=== PATIENT | female | born 1975 | race Caucasian/White ===

== ENCOUNTER 2017-11-15 09:03 | Outpatient (REF) | payer SELFPAY ==
[2017-11-15 14:32] LABS: Cholesterol 166 mg/dL (50-200); Glucose 85 mg/dL (70-100); HDL Cholesterol 52 mg/dL (40-60); LDL CHOLESTEROL 102 mg/dL (<100); TSH (W/Ref FT4) 2.23 uIU/mL (0.358-3.74); Triglyceride 60 mg/dL (30-150)
== END 2017-11-15 09:23 ==
LOC: NCHCN 09:03
PROVIDERS: PCP Nurse Practitioner Family; Visit Provider Nurse Practitioner
DX: Z00.00 Encounter for general adult medical examination without abnormal findings (principal); Z13.1 Encounter for screening for diabetes mellitus; Z13.29 Encounter for screening for other suspected endocrine disorder; Z13.220 Encounter for screening for lipoid disorders
CPT/HCPCS: 80061; 82947; 83721; 84443

== ENCOUNTER 2017-11-28 15:51 | Outpatient (REF) | payer SELFPAY ==
[2017-11-28 19:23] LABS: Bilirubin Negative (Negative); Blood Small (Negative); Clarity Sl Cloudy; Glucose Negative (Negative); Ketones Negative (Negative); Leukocyte Esterase Large (Negative); Nitrite Negative (Negative)
[2017-11-28 20:13] LABS: Bacteria Many HPF (Negative); C & S Indicated? Yes; Casts Negative LPF (Negative); Crystals Negative HPF (Negative); Epithelial Cells Moderate HPF (Negative); Mucus Negative (Negative); Other Cells Negative (Negative); RBC Negative (0-2); WBC >50 HPF (0-5)
== END 2017-11-28 16:11 ==
LOC: NCHCN 15:51
PROVIDERS: PCP Nurse Practitioner Family; Visit Provider Nurse Practitioner
DX: R35.0 Frequency of micturition (principal)
CPT/HCPCS: 87077; 81003; 81015; 87086; 87186

== ENCOUNTER 2018-01-12 20:12 | Outpatient (REF) | payer BC, SELFPAY | END 2018-01-12 20:32 | LOC: NCHCN 20:12 | PROVIDERS: PCP Nurse Practitioner Family; Visit Provider Nurse Practitioner | DX: N39.0 Urinary tract infection, site not specified (principal) | CPT/HCPCS: 87077; 87086; 87186 ==

== ENCOUNTER 2021-01-01 16:32 | Outpatient (REF) | payer SELFPAY ==
--- NOTE | 2021-01-01 08:30 | PAPFT_PTH ---
PATIENT: Guerita Bardales LOC: [facility]#:[id number] AGE/SX: 45/F ROOM: RE01/01/[address]: Yun Jorge : 1975 BED: DIS: 01/01/2021 SPEC #: [id number] RECD: 01/01/21 16:45 STATUS: STEFANY REQ #: [id number] JACK: 01/01/21 08:[address]: Yun Jorge DEPT: [facility] Cytology RECD BY: Steffany Moser ENTERED: 01/01/21 16:45 SP TYPE: PAPFT OTHR DR: Kelly Luciano Tissues: 1 - CX/ENDOCX FOR PAP SMEARS Procedures: PAP THIN PREP/UVM Screening HPV DNA PROBE Comments:
== END 2021-01-01 16:33 | disposition home or self-care (01) ==
LOC: NCHCN 16:32
PROVIDERS: PCP Nurse Practitioner Family; Visit Provider Nurse Practitioner
DX: Z12.4 Encounter for screening for malignant neoplasm of cervix (principal); Z11.51 Encounter for screening for human papillomavirus (HPV)
CPT/HCPCS: 88142; 87624

== ENCOUNTER 2022-03-19 17:23 | Emergency (ER) | payer SELFPAY ==
[2022-03-19 17:27] VITALS: BP 127/69; PULSE 75; RESP 16; TEMP 36.5; O2SAT 100
--- NOTE | 2022-03-19 17:34 | ED.GENADUL_ITS ---
Discharge Plan Disposition Patient Disposition: Home Condition: Good Discharge Details Clinical Impression: Cough present for greater than 3 weeks Primary Care Provider: Yun Jorge ED Provider: Gerber Barker [place] Meds and New Rx's Prescriptions: New azithromycin 250 mg tablet 250 mg PO DAILY 4 Days Qty: 4 0RF Rx Instructions: start on day 2 of therapy benzonatate 100 mg capsule 100 mg PO TID PRNQty: 20 0RF Discharge Instructions Instructions: Acute Bronchitis (ED) Additional Instructions: You were seen in the ED for cough for the last 6 weeks. Your chest x-ray is normal. Your chest pain is likely related to your cough and is reproducible with palpation along the sternum. You may take acetaminophen or ibuprofen for this discomfort. We will start you on antibiotic to cover for atypical infections. We will also provide you with benzonatate to help with your cough. Please follow-up with primary care next week for recheck. You should return to the ED for any new or worsening pain, shortness of breath, mental status changes, other concerns. Medical Decision Making Patient presenting with persistent cough over 6 weeks and chest pain with cough or deep breath. She does not have shortness of breath. She has never had fever. Her lungs are clear. Chest pain is reproducible with palpation along both sternal borders. Saturations are normal. Pulses normal. Will obtain chest x-ray but her chest pain is likely related to cough and chest wall pain. She perks out for PE. She does not need EKG and laboratory studies at this point. Chest x-ray without acute cardiopulmonary disease per my read. Given the duration of the patient's cough will cover for atypicals with a macrolide. Will prescribe Tessalon for her cough. Follow-up with primary care next week for recheck. Return precautions discussed. HPI General Mode of arrival: ambulatory . Date/Time Provider Initiated Documentation: 03/19/22 17:34 . Limitations to Documentation: no limitations . Information obtained by: patient . HPI Narrative: Patient presents to ED with complaint of cough for the last 6 weeks. It is dry and nonproductive. It is not worse but it is not improved since she came down with a little bit of a cold 6 weeks ago. At no time as she had fever. She does not have shortness of breath. She does have chest pain with cough and deep breathing along both sides of her sternum. She denies any back pain. She has bilateral ear fullness but no pain. She has no congestion, sore throat, headache. Has no prior history of asthma. She is not a smoker. She is able to continue her daily routine but has episodes of coughing fits where she cannot catch her breath and his family come in to be evaluated. Related Data Home Medications Medication Instructions Recorded Confirmed azithromycin 250 mg tablet 250 mg PO DAILY 4 days #4 tabs 03/19/22 benzonatate 100 mg capsule 100 mg PO TID PRN #20 caps 03/19/22 Previous Rx's Medication Instructions Recorded azithromycin 250 mg tablet 250 mg PO DAILY 4 days #4 tabs 03/19/22 benzonatate 100 mg capsule 100 mg PO TID PRN #20 caps 03/19/22 Allergies Allergy/AdvReac Type Severity Reaction Status Date / Time amoxicillin Allergy Mild SKIN RASH Unverified 05/15/14 06:35 General Stated Complaint: RespSymp NERISSA: 3 Review of Systems Narrative: As per HPI PFSH All Active Problems (Updated 03/19/22 @ 18:07 by Gerber Barker MD) Cough present for greater than 3 weeks (Acute) Medical History No significant past medical history Surgical History S/P tubal ligation Social History Smoking/Tobacco Use Status: Never Smoking risk assessment performed?: Yes Drug use: Never Do you feel safe at home: Yes Do you feel safe in your relationship?: Yes Exam Narrative Exam Narrative: Const: WDWN female in NAD. HEENT: NC/AT. Normal facial exam. TMs clear bilaterally. Eyes: Normal conjunctiva and sclera. Neck: Supple. Trachea midline. Lungs: Normal respiratory effort. Lungs are clear. Tender along both sternal boarders. Cor: RRR without murmur/gallop. Good radial pulses. GI: Soft. NT/ND. No guarding or rebound. Neuro: A+O x 3. Normal speech, mentation, gait. Cranial nerves II - XII grossly intact. No gross motor or sensory deficit. Ext: No C/C/E. Skin: Warm and dry without rash. Course Vital Signs Vital signs: Vital Signs Temperature 97.7 F 03/19/22 17:27 Pulse 75 03/19/22 17:27 Respiratory Rate 16 03/19/22 17:27 Blood Pressure 127/69 03/19/22 17:27 Pulse Oximetry 100 03/19/22 17:27 Temperature 97.7 F 03/19/22 17:27 Temperature Source Temporal Artery Scan 03/19/22 17:27 Pulse 75 03/19/22 17:27 Respiratory Rate 16 03/19/22 17:27 Blood Pressure 127/69 03/19/22 17:27 Blood Pressure Position Sitting 03/19/22 17:27 Pulse Oximetry 100 03/19/22 17:27 Oxygen Delivery Method Room Air 03/19/22 17:27 Oxygen Flow Rate 0 03/19/22 17:27 Pain Level 5 03/19/22 17:27
[2022-03-19 17:39] VITALS: O2SAT 98
--- NOTE | 2022-03-19 17:45 | DI.RAD_ITS ---
Exam(s) XR CHEST 2V PA LATERAL EXAM: XR CHEST 2V PA LATERAL CLINICAL HISTORY: persistent pain. TECHNIQUE: 2D digital imaging was performed. COMPARISON: CR CHEST 2 VIEWS PA,LAT from 07/31/2008 FINDINGS: 2 views: Heart size is normal. The mediastinum is not widened. Lungs are clear. No infiltrates nor pleural effusions. IMPRESSION: No acute pulmonary findings. DATA REPOSITORY: RADIATION DOSE DELIVERED:
[2022-03-19 17:46] VITALS: BP 116/81; PULSE 67
--- NOTE | 2022-03-19 18:14 | DI.VRAD_ITS ---
PROCEDURE INFORMATION: Exam: XR Chest Exam date and time: 03/19/2022 5:59 PM Age: 46 years old Clinical indication: Other: Persistant pain TECHNIQUE: Imaging protocol: Radiologic exam of the chest. Views: 2 views. Total images: 2 COMPARISON: No relevant prior studies available. FINDINGS: Lungs: Unremarkable. No consolidation. Pleural spaces: Unremarkable. No pleural effusion. No pneumothorax. Heart/Mediastinum: Unremarkable. No cardiomegaly. Bones/joints: Unremarkable. IMPRESSION: No acute findings. Dictated and Authenticated by: Michael Almanzar MD. Ordering:ORALIA Mayes MD
[2022-03-19] MEDS: Benzonatate 100 MG CAP PO (18:23)
[2022-03-19] MEDS: Azithromycin 250 MG TAB 500 MG PO (18:23)
== END 2022-03-19 18:25 | disposition home or self-care (01) ==
PROVIDERS: Emergency Provider Emergency Medicine; PCP Nurse Practitioner
DX: R05.9 Cough, unspecified (principal); R07.89 Other chest pain
CPT/HCPCS: 99283; 71046; 99284

== ENCOUNTER 2023-03-30 04:27 | Outpatient (CLI) | payer OTHER, SELFPAY ==
[2023-03-30 17:51] LABS: HBs Antibody, Quant <3.1 mIU/mL (See Note); Hepatitis B Surface Ab Negative (See Note)
[2023-03-31 10:30] LABS: Varicella IgG Antibody Positive (See Note)
[2023-03-31 10:37] LABS: Measles IgG Antibody Positive (See Note); Mumps Antibody IgG Positive (See Note)
[2023-03-31 10:42] LABS: Rubella IgG Ab (UVM) Positive (See Note)
[2023-04-01 12:07] LABS: TB Interpretation Negative (Negative)
== END 2023-03-30 04:28 | disposition home or self-care (01) ==
LOC: LBO 04:27
PROVIDERS: PCP Nurse Practitioner Family; Visit Provider Nurse Practitioner Family
DX: Z02.1 Encounter for pre-employment examination (principal); Z11.1 Encounter for screening for respiratory tuberculosis; Z11.59 Encounter for screening for other viral diseases; Z01.84 Encounter for antibody response examination
CPT/HCPCS: 36415; 86706; 86787; 86480; 86735; 86762; 86765

== ENCOUNTER 2023-07-26 08:08 | Emergency (ER) | payer OTHER, SELFPAY ==
[2023-07-26 08:10] VITALS: BP 124/73; PULSE 76; RESP 16; TEMP 37.7; O2SAT 99
[2023-07-26] MEDS: Loratidine 10 MG TAB PO (08:59)
[2023-07-26] MEDS: diphenhydrAMINE 25 MG CAP PO (08:59)
[2023-07-26] MEDS: Ketorolac 10 MG TAB PO (09:00)
[2023-07-26] MEDS: Prochlorperazine 5 MG TAB PO (09:00)
[2023-07-26 09:03] VITALS: BP 124/73; PULSE 76; RESP 16; TEMP 37.7; O2SAT 99
--- NOTE | 2023-07-26 10:23 | ED.GENADUL_ITS ---
Discharge Plan Disposition Patient Disposition: Home Discharge Details Clinical Impression: Facial swelling, Periorbital swelling, Sunburn, Head ache Primary Care Provider: STEVIE CONTI ED Provider: Rusty Carrillo Home Meds and New Rx's Prescriptions: No Action montelukast [Singulair] PO cetirizine 10 mg tablet 10 mg PO DAILY PRN fluticasone propionate [Allergy Relief (fluticasone)] 50 mcg/actuation spray,suspension 2 spray intranasal DAILY Rx Instructions: administer into each nostril benzonatate 100 mg capsule 100 mg PO TID PRNQty: 20 0RF Discharge Instructions Instructions: General Headache (ED) Additional Instructions: * Continue Claritin and Benadryl to help with facial swelling. Ice pack will also help with the swelling * Take Motrin and Tylenol to help with the headache * Increase water intake, aggressively drink water until your sunburn resolves * Return to the emergency department with any eye pain, vision change or concerns for infection like we discussed. Discharge Data Discharge Date/Time-TO BE ENTERED AT DEPARTURE: 07/26/23 09:03 HPI General Date/Time Provider Initiated Documentation: 07/26/23 08:23 . Limitations to Documentation: no limitations . Information obtained by: patient . HPI Narrative: 47-year-old female without significant past medical history presents for evaluation of facial swelling. She reports that 2 days ago she developed significant sunburn after being outside all day. She then reports that yesterday she woke up and had some facial swelling, particularly around the right eye. This was associated with headache. She has taken some Tylenol w ithout significant improvement. She denies any pain with eye movement, blurry vision or change in vision. She denies any significant history of headaches. No vomiting. She reports that she has significant sunburn on arms and legs as well. Related Data Home Medications Medication Instructions Recorded Confirmed benzonatate 100 mg capsule 100 mg PO TID PRN #20 caps 03/19/22 cetirizine 10 mg tablet 10 mg PO DAILY PRN 09/28/22 09/28/22 fluticasone propionate 50 2 spray intranasal DAILY 09/28/22 09/28/22 mcg/actuation nasal spray,suspension (Allergy Relief (fluticasone)) montelukast [Singulair] PO 09/28/22 09/28/22 Previous Rx's Medication Instructions Recorded benzonatate 100 mg capsule 100 mg PO TID PRN #20 caps 03/19/22 Allergies Allergy/AdvReac Type Severity Reaction Status Date / Time amoxicillin Allergy Mild SKIN RASH Unverified 09/28/22 10:06 General Stated Complaint: EyeProblem NERISSA: 4 Exam Narrative Exam Narrative: Review of Systems: All systems reviewed & are unremarkable except as noted in HPI and below Well-developed, no acute distress NCAT PERRL, normal conjunctiva Visual acuity normal, no pain with eye movements, extraocular movements intact There is some mild periorbital edema, particularly of the upper lid. There is no tenderness or crepitus or obvious wounds RRR Unlabored respiratory effort Nondistended abdomen Extremities w/o deformity, no cyanosis, no edema Face is significantly red from burn, first-degree sunburn also noted on lower legs, with prominent redness no focal neurologic deficits Appropriate mood and affect Course Vital Signs Vital signs: Vital Signs Temperature 37.7 C H 07/26/23 08:10 Pulse 76 07/26/23 08:10 Respiratory Rate 16 07/26/23 08:10 Blood Pressure 124/73 07/26/23 08:10 Pulse Oximetry 99 07/26/23 08:10 Temperature 37.7 C H 07/26/23 09:03 Temperature Source Tympanic 07/26/23 09:03 Pulse 76 07/26/23 09:03 Respiratory Rate 16 07/26/23 09:03 Respiratory Effort Normal 07/26/23 08:23 Blood Pressure 124/73 07/26/23 09:03 Blood Pressure Position Sitting 07/26/23 09:03 Pulse Oximetry 99 07/26/23 09:03 Oxygen Delivery Method Room Air 07/26/23 09:03 Oxygen Flow Rate 0 07/26/23 09:03 Pain Level 5 07/26/23 09:03 Comment No APAP or ibuprofen today 07/26/23 09:03 Medical Decision Making Emergent evaluation of facial swelling. Initial differential includes sunburn, allergic reaction, no evidence of cellulitis, wound or other trauma. Patient has sustained fairly significant sunburn to her face and I suspect that the swelling is secondary to the inflammation from the burn and has settled with gravity. There is no ocular involvement and she has no actual eye complaint. I do not suspect facial cellulitis or other infectious etiology as a source of the facial swelling. I did advise some antihistamines and anti-inflammatory to help with the symptoms. I suspect her headache is secondary to dehydration with worsened by the sunburn. There are no meningeal signs or signs of trauma. Her headache is mild at this time and she does not require any intracranial imaging. Offered IV fluids and IV medications, but the patient has requested oral treatment. Advised aggressive oral hydration at home. Return precautions advised. Recommend sunscreen and follow-up with PCP. Quality:SDOH Health Related Social Needs: No Data to Display PFSH All Active Problems Head ache (Acute) Sunburn (Acute) Periorbital swelling (Acute) Facial swelling (Acute) Sensation of fullness in both ears (Acute) Sinus pressure (Acute) Medical History No significant past medical history Surgical History S/P tubal ligation Social History Smoking/Tobacco Use Status: Never Smoking risk assessment performed?: Yes Drug use: Never Substance use type: does not use Do you feel safe at home: Yes Do you feel safe in your relationship?: Yes
== END 2023-07-26 09:03 | disposition home or self-care (01) ==
PROVIDERS: Emergency Provider Emergency Medicine; PCP Nurse Practitioner Family
DX: R22.0 Localized swelling, mass and lump, head (principal); R51.9 Headache, unspecified; R42 Dizziness and giddiness; H05.221 Edema of right orbit; L55.9 Sunburn, unspecified
CPT/HCPCS: 99283

== ENCOUNTER 2023-08-03 18:09 | Outpatient (REF) | payer OTHER, SELFPAY ==
[2023-08-03 19:49] LABS: Anion Gap 11.4 mmol/L (3-11); BUN 13 mg/dL (7-18); CO2 26.6 mmol/L (21.0-32.0); CREATININE 0.9 mg/dL (0.55-1.02); Calcium 9.5 mg/dL (8.5-10.1); Calculated LDL 103 mg/dL (<100); Chloride 103 mmol/L (98-107); Cholesterol 177 mg/dL (<200); Estimated GFR 79.35 (mL/min/1.73m2); Glucose 89 mg/dL (74-106); HDL Cholesterol 63 mg/dL (40-60); Potassium 3.8 mmol/L (3.5-5.1); Sodium 141 mmol/L (136-145); Triglyceride 55 mg/dL (<150)
== END 2023-08-03 18:10 | disposition home or self-care (01) ==
LOC: NCHCN 18:09
PROVIDERS: PCP Nurse Practitioner Family; Visit Provider Nurse Practitioner Family
DX: Z00.00 Encounter for general adult medical examination without abnormal findings (principal)
CPT/HCPCS: 80048; 80061

== ENCOUNTER → 2023-09-08 00:43 | Outpatient (CLI) | payer OTHER, SELFPAY ==
--- NOTE | 2023-09-08 | DI.MAMMO_ITS ---
Exam(s) MAMMO SCREENING EXAM: MAMMO SCREENING CLINICAL HISTORY: Screening, Z12.39 TECHNIQUE: Mammograms were interpreted according to the usual protocol including computer analysis w [employer] CAD system, tomosynthesis and C-view imaging. COMPARISON: None. Baseline examination. FINDINGS: The breasts are composed of heterogeneously dense fibroglandular densities, Breast Density category C . No suspicious masses or suspicious microcalcifications are seen. No skin thickening or abnormal axillary lymph nodes are seen. IMPRESSION: BI-RADS Category 1, Negative mammogram. Yearly screening mammography is recommended. Breast Density Category C, heterogeneously Dense. The mammogram demonstrates the patient's breast tissue is dense. Dense breast tissue is very common a nd is not abnormal but dense breast tissue can make it harder to find cancer on a mammogram. Also, de nse breast tissue may increase breast cancer risk. This information about the result of the mammogram report was provided to the patient to raise their awareness. Use this report when you speak with the patient about their risks for breast cancer, which includes their family history. At that time, you may recommend additional screening tests (Ultrasound or MRI) as they might be useful based on their r isk. A negative radiographic report should not delay biopsy if a dominant or clinically suspicious mass is present. Up to ten percent of cancers are not identified on mammography. A negative report may reinforce clinical impression. Adenosis and dense breasts may obscure an underlying neoplasm. False positive reports average 6 to 10%.
== END ==
PROVIDERS: PCP Nurse Practitioner Family; Visit Provider Nurse Practitioner Family
DX: Z12.39 Encounter for other screening for malignant neoplasm of breast (principal); Z12.31 Encounter for screening mammogram for malignant neoplasm of breast; R92.333 Mammographic heterogeneous density, bilateral breasts
CPT/HCPCS: 77063; 77067

== ENCOUNTER 2024-01-09 09:03 | Day surgery (SDC) | payer OTHER, SELFPAY ==
--- NOTE | 2024-01-08 08:11 | W.PM.DSUDISC ---
Date of service: 01/09/24 Time of Service: 10:11 Discharge Plan Disposition Patient Disposition: Home Condition: Good Discharge Details Reason For Visit: screening colonoscopy Attending Provider: Tyron Perez Primary Care Provider: STEVIE CONTI Home Meds and New Rx's Prescriptions: Continued No Known Home Meds Discharge Instructions Additional Instructions: Guerita was great seeing you today, and I hope you are comfortable during the procedure. Your colonoscopy was totally normal. With a negative screening colonoscopy today, you will be good for 10 years. If you have any questions at all, please do not hesitate to reach out to your primary care physician further recommendations. 1. If tolerated, consume a soft, low fiber diet for 1-2 days. 2[address] Do not drive, drink alcohol, operate machinery, make critical decisions, or do activities that require coordination or balance for 24 hours. 3. Because air was put into your colon during the procedure, expelling air from your rectum (passing gas or farting) is normal. 4. You may not have a bowel movement for 1-3 days because of the colonoscopy prep. This is normal. 5. Go directly to the emergency room if you notice any of the following: Develop chills (warm to touch), or if you have a thermometer and your temperature is above 101 Difficulty breathing or difficultly swallowing Persistent vomiting Severe abdominal pain, other than gas cramps Severe chest pain Black, tarry stools Any bleeding ? exceeding one tablespoon 6. Call your physician if the site where your intravenous was started becomes red, swollen, painful, and warm to touch. 7. Your physician has reviewed your pre-procedure medications. Please continue to take those medications as previously ordered. You will be given specific information/education regarding any changes to your medications before leaving. Activity:: Activity as Tolerated Diet:: As Tolerated Discharge Orders Discharge Orders: Discharge Order (Routine); Ordered 01/08/24 Ordered By: Tyron Perez DS: Diagnosis Discharge Diagnosis (1) Encounter for screening colonoscopy: Status: Acute Asessment and Plan: Negative screening colonoscopy; follow-up in 10 years
--- NOTE | 2024-01-08 08:12 | W.COLOREPORT ---
Date of service: 01/09/24 Time of Service: 10:11 Colonoscopy Report Date of procedure: 01/09/24 Pre-op diagnosis general: screening colonoscopy Post-op diagnosis procedure note: other (Negative screening colonoscopy) Procedure: colonoscopy Surgeon: Tyron Perez Anesthesia Type: General LMA/ETT Estimated blood loss (mL): 0 Pathology: none sent Complications: None Disposition: same day Indications: Guerita is a 48 year old woman who needs a screening colonoscopy Prep: Miralax/Dulcolax Procedure Start Time: 09:51 Procedure End Time: 09:57 Retraction Time: 7 Findings: Negative screening colonoscopy Procedure Description: After the induction of anesthesia, and with the patient in left lateral decubitus position, I began by performing an external anorectal exam.? Perineum and skin were normal, as was the anal verge.? There was no evidence of external hemorrhoids.? Next, I performed a digital rectal exam.? I did not appreciate any abnormal findings.? Next, I advanced a colonoscope into the rectal vault.? I performed retroflexion.? This appeared normal.? Using insufflation, I then advanced the colonoscope beyond the rectal folds and into the sigmoid colon before advancing towards the cecum.? The quality of the prep was outstanding.? The scope was noted to be in the cecum by identification of the ileocecal valve and appendiceal orifice.? I then began withdrawing the colonoscope using repeated irrigation as necessary for full evaluation of the colonic mucosa. ?Once the scope was withdrawn to the level of the rectum, great care was taken to examine portions of the rectal folds.? I saw no signs of tumors, polyps, or any other abnormalities. Finally, the scope was withdrawn and the patient was brought to the same-day surgery recovery unit as the anesthetic wore off. ?The findings and instructions were shared with the patient prior to discharge. [place] Bowel Prep [place] Bowel Prep Right Colon: 3 Left Colon: 3 Transverse Colon: 3 Total Score: 9
--- NOTE | 2024-01-09 06:36 | W.ANESPRE ---
General Info Date of Service Date Performed: 01/09/24 Height: 5 ft 7 in Weight: 66.905 kg Body Mass Index (BMI): 23.1 Surgical Procedure: Operation Date: 01/09/24 10:20 Proposed Procedure Side Surgeon p Colonoscopy Tyron Perez MD Meds Allergies and Home Medications Allergies Allergy/AdvReac Type Severity Reaction Status Date / Time amoxicillin Allergy Mild SKIN RASH Verified 01/09/24 09:30 Home Medication ?Medication ?Instructions ?Recorded Unknown [No Known Home Meds] 01/06/24 Current Visit Medications: Current Medications Generic Name Dose Route Start Last Admin Trade Name Freq PRN Reason Stop Dose Admin IV Miscellaneous Supplies 1 each 01/09/24 06:00 Iv Access IV 02/05/24 23:59 DIRECTED MO Ondansetron HCl 4 mg 01/08/24 08:13 Ondansetron 4 Mg/2 Ml Vial IVP 02/07/24 08:12 Q4H PRN PRN Nausea / Vomiting Sodium Chloride 0 ml 01/09/24 06:00 Normal Saline Flush 10 Ml Syr IV 02/05/24 23:59 PRN PRN Sodium Chloride 0 ml 01/09/24 06:00 Normal Saline 10 Ml Vial IJ 02/05/24 23:59 DIRECTED PRN Sterile Water 0 ml 01/09/24 06:00 Water,Injection,Sterile 10 Ml Vial IJ 02/05/24 23:59 DIRECTED PRN PFSH Active Problems Active Problems: Problem Status Onset Code Encounter for screening colonoscopy Acute Z12.11 Sensation of fullness in both ears Acute H93.8X3 Sinus pressure Acute J34.89 Medical History Medical History Pain in thoracic spine Inflammation of sacroiliac joint UTI (urinary tract infection) Disorder of nasal sinus Chronic sinusitis Dysplastic nevus of skin No significant past medical history Medical History Comments:: Per pt. states her sister did, I'm not sure but I think her heart stopped beating Surgical History Surgical History S/P tubal ligation Tobacco Smoking/Tobacco Use Status: Never Alcohol Alcohol Intake: current Alcohol intake frequency: a few times a week Substance Use Substance use: Never Substance use type: does not use Vital Signs and Lab Results Vital Signs Most Recent Vital Signs in EMR: Temp Pulse Resp BP Pulse Ox 36.2 C L 71 18 114/64 99 01/09/24 09:20 01/09/24 09:20 01/09/24 09:20 01/09/24 09:20 01/09/24 09:20 Lab Results Blood Type / Crossmatch: No Data to Display Complete Blood Count: No Data to Display Complete Metabolic Panel: No Data to Display Liver Function Panel: No Data to Display Coagulation Panel: No Data to Display Cardiac Panel: No Data to Display Arterial Blood Gas: No Data to Display Venous Blood Gas: No Data to Display Pancreas Panel: No Data to Display Thyroid Panel: No Data to Display Infectious Disease: No Data to Display Blood Cultures: No Data to Display Toxicology Panel: No Data to Display Panel: No Data to Display Anesthesia Assessment and Plan Anesthesia History Personal History: No History of Anesthesia Complications Family History: No Family History of Anesthesia Complications and Other Exercise Tolerance Exercise Tolerance: Metabolic Equivalents>4 Pertinent Negatives Pertinent Negatives: No Symptoms of GERD Cardiac & Pulmonary Exam Cardiac Exam: Normal S1/S2 Heart Sounds Pulmonary Exam: Clear Bilateral Breath Sounds Implantable Cardiac Device Does patient have a Pacemaker or an ICD?: No Airway Exam Known Difficult Airway: No Mallampati Class: 2 Mouth Opening: Normal (> 3cm) Thyromental Distance: Greater than 3 cm Neck Range of Motion: Full ROM Neck Circumference: Normal Teeth Condition: Normal Dentition ASA Classification ASA Score: ASA 2 Emergency Case?: No NPO Status NPO Status: NPO Clears >2 hours, Solids >8 hours Status Status: Not Relevant due to Medical History Anesthesia Plan Resuscitation Status: Full Code Anesthesia Technique: General Anesthesia Airway Planned: Natural Airway Monitors Used: Standard Monitors Preoperative Comments:: 48 yo female for colo. Sig PMHx: back pain. never smoker, occ EtOH.
[2024-01-09 09:20] VITALS: BP 114/64; PULSE 71; RESP 18; TEMP 36.2; O2SAT 99
[2024-01-09 09:36] VITALS: BMI 23.1
[2024-01-09] MEDS: Normal Saline Flush 10 ML SYR IV (09:40)
[2024-01-09 10:11] VITALS: BP 94/59; PULSE 72; RESP 16; TEMP 36.3; O2SAT 98
--- NOTE | 2024-01-09 10:25 | W.ANESPOSTOP ---
Postoperative Evaluation Date, Time and Location Date Performed: 01/09/24 Time Performed: 10:25 Patient Location: Day Surgery Unit Vital Signs Most Recent Imported Vital Signs: Most Recent Vital Signs Temp Pulse Resp BP Pulse Ox 36.3 C L 72 16 94/59 L 98 01/09/24 10:11 01/09/24 10:11 01/09/24 10:11 01/09/24 10:11 01/09/24 10:11 Pain Score Most Recent Pain Score: Most Recent Pain Score Pain Level 0 01/09/24 10:11 Assessment Mental Status: Awake (Alert & Oriented to Patient Baseline) Airway and Respiratory Function: Patent airway with normal (patient baseline) respiratory exam Cardiovascular Function: Hemodynamically Stable Hydration Status: Adequately Hydrated Nausea & Vomiting: No Nausea or Vomiting Pain: Pt. Denies Any Pain Peripheral Nerve Block: Patient did not receive a nerve block
[2024-01-09 10:39] VITALS: BP 94/67; PULSE 75; RESP 16; TEMP 36.1; O2SAT 97
== END 2024-01-09 11:16 | disposition home or self-care (01) ==
LOC: SUR 09:04
PROVIDERS: PCP Nurse Practitioner Family; Visit Provider Surgery
PROC: 0DJD8ZZ Inspection of Lower Intestinal Tract, Via Natural or Artificial Opening Endoscopic (ICD-10-PCS; CPT 45378; principal; 2024-01-09 10:15)
DX: Z12.11 Encounter for screening for malignant neoplasm of colon (principal)
CPT/HCPCS: 45378; 81025; J2704

== ENCOUNTER 2024-09-19 01:14 | Outpatient (CLI) | payer OTHER, SELFPAY ==
--- NOTE | 2024-09-19 | DI.MAMMO_ITS ---
Exam(s) MAMMO SCREENING EXAM: MAMMO SCREENING CLINICAL HISTORY: SCREENING, Z12.39 TECHNIQUE: Bilateral full field digital CC and MLO mammographic images were obtained with 3D tomosynthesis and utilizing computer aided detection (CAD). COMPARISON: Comparison is made with prior examinations. FINDINGS: Masses/Architectural Distortion: There is a question of a new area of architectural distortion in the posterior superior right breast on the MLO view 7 cm from the nipple. This area should be further evaluated with spot compression view and ultrasound. Microcalcifications: No suspicious pleomorphic-type are seen. Skin Thickening/Nipple Retraction: None. IMPRESSION: 1. Question of a new area of architectural distortion in the posterior superior right breast on the MLO view. 2. A spot compression views requested for further evaluation. Ultrasound may be indicated at that time. BI-RADS Category 0 - Incomplete: Need additional imaging evaluation Breast Density - Category C - The breast are heterogeneously dense, which may obscure small masses. Breast density Category C or D implies that the patient has dense breast tissue. Dense breast tissue can make it harder to find cancer on a mammogram. Dense breast tissue is also associated with an increased risk of breast cancer. This information about the result of the mammogram report was provided to the patient to raise their awareness. Use this report when you speak with the patient about their risks for breast cancer, which includes their family history. At that time, you may recommend additional screening tests (Ultrasound or MRI) as these tests may add significant information. A negative radiographic report should not delay biopsy if a dominant or clinically suspicious mass is present. Up to ten percent of cancers are not identified on mammography. A negative report may reinforce clinical impression. Adenosis and dense breasts may obscure an underlying neoplasm. False positive reports average 6 to 10%. Patient will receive a letter notifying them of these results.
== END 2024-09-19 01:34 ==
LOC: DI 01:14
PROVIDERS: PCP Nurse Practitioner Family; Visit Provider Nurse Practitioner Family
DX: Z12.31 Encounter for screening mammogram for malignant neoplasm of breast (principal); R92.333 Mammographic heterogeneous density, bilateral breasts
CPT/HCPCS: 77063; 77067

== ENCOUNTER 2024-09-25 02:54 | Outpatient (CLI) | payer OTHER, SELFPAY ==
--- NOTE | 2024-09-25 15:01 | DI.US_ITS ---
Exam(s) MG MAMMO SCREEN CALL BACK UNI US BREAST RT COMPLETE EXAM: MG MAMMO SCREEN CALL BACK UNI-RIGHT AND COMPLETE RIGHT BREAST ULTRASOUND CLINICAL HISTORY: F/U MAMMO, R92.8,? NEW ARCHITECTURAL DISTORTION RT BREAST. TECHNIQUE: Unilateral RIGHT BREAST spot mammographic images obtained with 3D tomosynthesisand utilizing computer aided detection (CAD). . Complete RIGHT breast Ultrasound was also performed, including all 4 quadrants, the retroareolar region, and the ipsilateral axilla. COMPARISON: Prior mammograms were reviewed. This additional imaging was performed due to findings described on the recent screening mammogram of 09/25/2024. FINDINGS: DIAGNOSTIC MAMMOGRAM: Additional mammographic views performed todayrender this area somewhat less concerning. We proceeded with ultrasound COMPLETE RIGHT BREAST ULTRASOUND: Ultrasound performed today reveals no significant focal findings to correspond to the finding described posteriorly in the right breast on the recent screening mammogram.. For, there were multiple other findings evident on ultrasound exam... At the 12 o'clock position there is a 9 x 8 mm wider than taller slightly lobulated solid nodule with increased through transmission having the appearance of a probable fibroadenoma At the 4 o'clock position there is an oval wider than taller benign-appearing nodule measuring 5 x 3 mm which is either hemorrhagic microcyst or no other fibroadenoma. At the 10 o'clock position there are 2 adjacent benign microcysts measuring 7 and 5 mm. Also at 10 o'clock position is another finding located 1 cm from nipple which is a wider than taller slightly lobulated nodule measuring 9 x 6 mm which is either hemorrhagic microcyst or fibroadenoma. At the 11 o'clock position there is a 9x 3 mm benign microcyst. Scanning of the ipsilateral axilla reveals no significant adenopathy. IMPRESSION: 1. There are multiple findings on ultrasound examination which are not seen on 3D tomosynthesis mammography in this patient with dense breast tissue. These are described individually above and are comprised of a combination of benign microcysts and what are probably 2 fibroadenomas, the largest measuring 9 x 8 mm and located at 12 o'clock position. 2. Appropriate follow-up is repeat breast ultrasound in 3 months time. At that time the ultrasound should be a bilateral study. This will not only term in the stability of the right breast ultrasound findings but also to determine if there are any additional findings in the opposite-left breast. Findings are recommendations were discussed by myself with the patient today. BI-RADS Category 3 - 3 month - Probably Benign Finding: Recommend follow-up mammography in 3 months Breast Density - Category C - The breast are heterogeneously dense, which may obscure small masses. Breast density Category C or D implies that the patient has dense breast tissue. Dense breast tissue can make it harder to find cancer on a mammogram. Dense breast tissue is also associated with an increased risk of breast cancer. This information about the result of the mammogram report was provided to the patient to raise their awareness. Use this report when you speak with the patient about their risks for breast cancer, which includes their family history. At that time, you may recommend additional screening tests (Ultrasound or MRI) as these tests may add significant information. A negative radiographic report should not delay biopsy if a dominant or clinically suspicious mass is present. Up to ten percent of cancers are not identified on mammography. A negative report may reinforce clinical impression. Adenosis and dense breasts may obscure an underlying neoplasm. False positive reports average 6 to 10%. Patient will receive a letter notifying them of these results.
== END 2024-09-25 03:14 ==
PROVIDERS: PCP Nurse Practitioner Family; Visit Provider Nurse Practitioner Family
DX: Z12.31 Encounter for screening mammogram for malignant neoplasm of breast (principal); R92.8 Other abnormal and inconclusive findings on diagnostic imaging of breast; R92.333 Mammographic heterogeneous density, bilateral breasts
CPT/HCPCS: 76642; 77063; 77067

== ENCOUNTER 2025-01-11 12:24 | Outpatient (REF) | payer OTHER, SELFPAY ==
--- NOTE | 2025-01-11 12:00 | BREAST_PTH ---
PATIENT: Guerita Bardales LOC: [facility] U#:[id number] AGE/SX: 49/F ROOM: RE01/11/[address]: Rica Linton MD : 1975 BED: DIS: 01/11/2025 SPEC #: [id number] RECD: 01/11/25 12:47 STATUS: STEFANY REShawn #: [id number] JACK: 01/11/25 12:[address]: Rica Linton DEPT: Surgical Specimen RECD BY: Steffany Moser ENTERED: 01/11/25 12:47 SP TYPE: Breast OTHR DR: STEVIE CONTI, SARITHA Tissues: 1 - BREAST BX NEEDLE Procedures: GROSS AND MICRO LEVEL 4 Comments: [id number]
== END 2025-01-11 12:25 | disposition home or self-care (01) ==
LOC: LBN 12:24
PROVIDERS: PCP Nurse Practitioner Family; Visit Provider Surgery
DX: D76.3 Other histiocytosis syndromes (principal)
CPT/HCPCS: 88305

== ENCOUNTER → 2025-01-16 02:06 | Outpatient (CLI) | payer OTHER, SELFPAY ==
--- NOTE | 2025-01-16 07:00 | DI.MAMMO_ITS ---
Exam(s) MG MAMMO DIAGNOSTIC UNI US BREAST RT LIMITED EXAM: MG MAMMO DIAGNOSTIC UNI AND LIMITED RIGHT BREAST ULTRASOUND CLINICAL HISTORY: s/p R breast biopsy 12:00 3cmfn,rt breast mass,bilat fibrocystic changes. TECHNIQUE: Unilateral RIGHT BREAST CC AND MLO mammographic images were obtained with 3D tomosynthesis technique and utilizing computer aided detection (CAD). LIMITED RIGHT BREAST ULTRASOUND was performed. COMPARISON: Prior mammograms were reviewed, as were prior ultrasounds. This patient underwent ultrasound-guided right breast core biopsy of 12 o'clock position nodule on 01/11/2025 at the surgeon's office. The ultrasound images from that procedure were reviewed. FINDINGS: DIAGNOSTIC MAMMOGRAM: There is now a biopsy marker device evident. It is difficult on mammogram to determine if this is within a nodule given the density of the fibroglandular tissue. We proceeded with ultrasound. LIMITED RIGHT BREAST ULTRASOUND: The targeted 12 o'clock position nodule is somewhat difficult to locate when compared to the prior images of 12/28/2024. There is a smaller 4 millimeter nodule in this region now evident. This may possibly related to the fact that the nodule is decreased in size because of the recent core biopsy procedure.. Other possibly is at it may have been a hemorrhagic microcyst which imploded during that core biopsy procedure. Nearby there is a 2 millimeter hyperechoic focus which is most probably the biopsy marker clip. This is surrounded by some fluid measuring 2.4 by 0.8 cm, probably postprocedure seroma. This clip is not in a solid nodule IMPRESSION: As above. Appropriate follow-up will depend upon the pathology report from the procedure of 01/11/25. Nevertheless, the patient should undergo repeat bilateral breast ultrasound in 6 months. The patient was informed of the findings and follow-up recommendations by myself Prior to leaving the department today. BI-RADS Category 3 - 6 month - Probably Benign Finding: Recommend follow-up mammography in 6 months Breast Density - Category C - The breast are heterogeneously dense, which may obscure small masses. Breast density Category C or D implies that the patient has dense breast tissue. Dense breast tissue can make it harder to find cancer on a mammogram. Dense breast tissue is also associated with an increased risk of breast cancer. This information about the result of the mammogram report was provided to the patient to raise their awareness. Use this report when you speak with the patient about their risks for breast cancer, which includes their family history. At that time, you may recommend additional screening tests (Ultrasound or MRI) as these tests may add significant information. A negative radiographic report should not delay biopsy if a dominant or clinically suspicious mass is present. Up to ten percent of cancers are not identified on mammography. A negative report may reinforce clinical impression. Adenosis and dense breasts may obscure an underlying neoplasm. False positive reports average 6 to 10%. Patient will receive a letter notifying them of these results.
== END ==
PROVIDERS: PCP Nurse Practitioner Family; Visit Provider Surgery
DX: N63.15 Unspecified lump in the right breast, overlapping quadrants (principal); N60.11 Diffuse cystic mastopathy of right breast; N60.12 Diffuse cystic mastopathy of left breast; D76.3 Other histiocytosis syndromes
CPT/HCPCS: 76642; 77061; 77065; G0279